=== PATIENT | female | born 1995 | race American Indian/Alaskan Native ===

== ENCOUNTER 2020-11-18 11:57 | Outpatient (CLI) | payer OTHER | END 2020-11-18 14:19 | disposition home or self-care (01) | LOC: NST 11:57 | PROVIDERS: ATTEND Obstetrics & Gynecology Maternal & Fetal Medicine | DX: Z34.83 Encounter for supervision of other normal pregnancy, third trimester (principal) ==

== ENCOUNTER 2022-03-26 15:11 | Outpatient (CLI) | payer OTHER | END 2022-03-26 16:32 | disposition home or self-care (01) | LOC: NST 15:11 | PROVIDERS: ATTEND Obstetrics & Gynecology | DX: Z34.82 Encounter for supervision of other normal pregnancy, second trimester (principal) ==

== ENCOUNTER 2022-06-04 10:15 | Inpatient (IN) | payer OTHER ==
[~2022-06-04] VITALS: Ht 157.5 cm; Wt 90.7 kg
[2022-06-04] MEDS ORDERED: PRENATABS FA T1 EACH PO (13:31)
== END 2022-06-12 14:18 | disposition home or self-care (01) | DRG 788 ==
LOC: OB/GYN 06-10 07:00 → O/R 06-10 07:57 → OB/GYN 06-10 10:15
PROVIDERS: ADMIT Obstetrics & Gynecology; ATTEND Obstetrics & Gynecology
PROC: 4A1HXCZ Monitoring of Products of Conception, Cardiac Rate, External Approach (ICD-10-PCS; 2022-06-10)
PROC: 10D00Z1 Extraction of Products of Conception, Low, Open Approach (ICD-10-PCS; principal; 2022-06-10 07:00)
DX: O36.63X0 Maternal care for excessive fetal growth, third trimester, not applicable or unspecified (principal); O34.211 Maternal care for low transverse scar from previous cesarean delivery; Z3A.39 39 weeks gestation of pregnancy; Z37.0 Single live birth; Z20.822 Contact with and (suspected) exposure to COVID-19